=== PATIENT | female | born 1940 | race Two or more races ===

== ENCOUNTER 2018-03-29 22:49 | Inpatient (IN) | payer MEDICARE, MEDICAID ==
[~2018-03-29] VITALS: Ht 154.9 cm; Wt 59.1 kg
[~2018-03-29 22:49] MED LIST: ALBU8.5H8 IH; ALEN70TA13 PO; ASPI-1130 PO; CYCL-1 PO; ESCI20TA38 PO; ESOM40CA PO; HYDR-3964 PO; PROP20TA6 PO
[2018-03-29] MEDS ORDERED: normal saline 1000ML IV soln IVB ONE (23:15)
[2018-03-29 23:18] LABS: ALANINE AMINOTRANSFERASE 14 U/L (12-78); ALBUMIN 3.6 G/DL (3.4-5.0); ALKALINE PHOSPHATASE 100 IU/L (46-116); ANION GAP 10 (8-16); ASPARTATE AMINO TRANSFERASE 11 U/L (10-37); BILIRUBIN,TOTAL 0.3 MG/DL (0.1-1.0); BLOOD UREA NITROGEN 12 MG/DL (7-18); BUN/CREATININE RATIO 14.8 (6.6-38.0); CALCIUM 10.2 MG/DL (8.5-10.1); CHLORIDE 106 MMOL/L (99-107); CREATININE 0.81 MG/DL (0.40-0.90); GLUCOSE 115 MG/DL (70-104); POTASSIUM 3.7 MMOL/L (3.5-5.1); PROTHROMBIN TIME 9.8 SECONDS (9.0-12.0); SODIUM 142 MMOL/L (135-145); TOTAL CARBON DIOXIDE 26.1 MMOL/L (24-32); TOTAL PROTEIN 7.3 G/DL (6.4-8.2); eGFR 68 ML/MIN
[2018-03-29 23:28] LABS: BASOPHILS # (AUTO) 0.1 X10'3 (0-0.2); BASOPHILS % (AUTO) 0.5 % (0-1); EOSINOPHILS # (AUTO) 0.1 X10'3 (0-0.9); EOSINOPHILS % (AUTO) 1.1 % (0-6); HEMATOCRIT 43.9 % (35.0-45.0); HEMOGLOBIN 14.1 g/dl (12.0-16.0); LYMPHOCYTES # (AUTO) 2.8 X10'3 (1.1-4.8); MEAN CORPUSCULAR HEMOGLOBIN 27.6 PG (27.0-31.0); MEAN CORPUSCULAR HGB CONC 32.3 % (33.0-36.5); MEAN CORPUSCULAR VOLUME 85.6 FL (78-98); MEAN PLATELET VOLUME 8.3 FL (7.4-10.4); MONOCYTES # (AUTO) 0.8 X10'3 (0-0.9); MONOCYTES % (AUTO) 6.9 % (2-12); NEUTROPHILS % (AUTO) 67.5 % (42-75); PLATELET COUNT 322 X10'3 (140-440); RED BLOOD COUNT 5.13 X10'6 (4.20-5.60); RED CELL DISTRIBUTION WIDTH 18.1 % (11.5-14.5); WHITE BLOOD COUNT 11.9 X10'3 (4.5-11.0)
[2018-03-29] MEDS: morphine 4 MG/ML inj SYRINge IV PRN (23:33)
[2018-03-30] MEDS: morphine 4 MG/ML inj SYRINge IV PRN (02:14)
[2018-03-30] MEDS ORDERED: acetaminophen 325mg tablet PO PRN (02:30)
[2018-03-30] MEDS ORDERED: morphine 4 MG/ML inj SYRINge IV PRN ×2 (02:30)
[2018-03-30] MEDS ORDERED: mag hydrox/Alum hydrox/simeth 30ml oral suspension PO PRN (02:30)
[2018-03-30] MEDS ORDERED: HYDROcodone/acetaminophen 5mg/325mg tablet PO PRN (02:30)
[2018-03-30] MEDS ORDERED: HYDROcodone/acetaminophen 10/325mg tab PO PRN (02:30)
[2018-03-30] MEDS ORDERED: magnesium hydroxide 30ml (MOM) UD suspension PO PRN (02:30)
[2018-03-30] MEDS: dextrose 5%-1/2 normal saline 1,000 ML IV SCH ×3 (03:11→22:20)
[2018-03-30 06:06] LABS: COLOR,URINE YELLOW (Yellow); GLUCOSE, URINE NEGATIVE (Neg); KETONES,URINE NEGATIVE (Neg); LEUKOCYTE ESTERASE ,URINE NEGATIVE (Neg); NITRITES, URINE POSITIVE (Neg); OCCULT BLOOD,URINE MODERATE (Neg); PROTEIN,URINE NEGATIVE (Neg); UROBILINOGEN,URINE 0.2 E.U/dL (0.2-1.0)
[2018-03-30 06:17] LABS: UA COLLECTION TYPE CLN CATCH MIDSTREAM
[2018-03-30 06:19] LABS: CLARITY,URINE CLOUDY (Clear)
[2018-03-30 06:25] LABS: BACTERIA,URINE 4+ /HPF (Neg); MUCUS STRANDS NONE SEEN /LPF (Neg); SQUAMOUS EPITHELIAL CELL,UR MODERATE /LPF (FEW)
--- NOTE | 2018-03-30 06:56 | NUR ---
I have received patient report from Rubi in ED
[2018-03-30] MEDS: ondansetron/PF 4mg/2ml inj IV PRN ×2 (07:13→17:27)
[2018-03-30] MEDS: enoxaparin 40mg/0.4ml syringe SUBCUT SCH (07:13)
--- NOTE | 2018-03-30 07:22 | NUR ---
Patient given zofran for nausea but no vomiting, patient depends removed, urine smelled very foul.
[2018-03-30 07:30] VITALS: BP 131/55
[2018-03-30 10:00] VITALS: BP 109/65
[2018-03-30] MEDS ORDERED: CefTRIAXone/D5W-Rocephin 1gm 50 ML IV ONE (11:40)
--- NOTE | 2018-03-30 18:35 | NUR ---
Patient in room [facility]TH[facility] 4012. I have received report from JOSE JARA and had the opportunity to ask questions and assume patient care. Addendum: 03/30/18 at 1904 by Carlie Donahue RN Amended: Links added.
--- NOTE | 2018-03-30 18:54 | NUR ---
I gave patient report to Malou SÁNCHEZ
[2018-03-30 19:00] VITALS: BP 115/50
[2018-03-30] MEDS ORDERED: diatrozoate meglu/diatrozoate sod (37% iodine) 120ML oral solution PO SCH (21:00)
[2018-03-30 22:00] VITALS: BP 105/87
[2018-03-30] MEDS: diatr meglu/diatrizoate 30ml oral sol.-(3 dose) bottle PO SCH (22:21)
--- NOTE | 2018-03-30 22:24 | NUR ---
complete bed bath and linen change, declined oral care, states will do in am. declined shampoo cap. Addendum: 03/30/18 at 2226 by Carlie Donahue RN Amended: Links added.
--- NOTE | 2018-03-31 06:38 | NUR ---
Problems reprioritized. Patient report given, questions answered & plan of care reviewed with JOSE MCNALLY. Addendum: 03/31/18 at 0638 by Carlie Donahue RN Amended: Links added.
[2018-03-31 06:49] VITALS: BP 122/45
[2018-03-31 06:58] LABS: BASOPHILS % (AUTO) 0.5 % (0-1); EOSINOPHILS # (AUTO) 0.1 X10'3 (0-0.9); HEMATOCRIT 34.8 % (35.0-45.0); HEMOGLOBIN 11.6 g/dl (12.0-16.0); LYMPHOCYTES # (AUTO) 2.2 X10'3 (1.1-4.8); LYMPHOCYTES % (AUTO) 45.1 % (21-51); MEAN CORPUSCULAR HEMOGLOBIN 28.3 PG (27.0-31.0); MEAN CORPUSCULAR HGB CONC 33.2 % (33.0-36.5); MEAN CORPUSCULAR VOLUME 85.2 FL (78-98); MEAN PLATELET VOLUME 8.5 FL (7.4-10.4); MONOCYTES # (AUTO) 0.6 X10'3 (0-0.9); MONOCYTES % (AUTO) 11.5 % (2-12); NEUTROPHILS % (AUTO) 39.9 % (42-75); PLATELET COUNT 255 X10'3 (140-440); RED BLOOD COUNT 4.09 X10'6 (4.20-5.60); RED CELL DISTRIBUTION WIDTH 17.6 % (11.5-14.5); WHITE BLOOD COUNT 4.9 X10'3 (4.5-11.0)
[2018-03-31 07:16] LABS: ALBUMIN 2.5 G/DL (3.4-5.0); ANION GAP 9 (8-16); BLOOD UREA NITROGEN 6 MG/DL (7-18); BUN/CREATININE RATIO 8.6 (6.6-38.0); CHLORIDE 111 MMOL/L (99-107); GLUCOSE 90 MG/DL (70-104); POTASSIUM 3.6 MMOL/L (3.5-5.1); SODIUM 145 MMOL/L (135-145); TOTAL CARBON DIOXIDE 25.2 MMOL/L (24-32); eGFR 81 ML/MIN
[2018-03-31] MEDS: diatr meglu/diatrizoate 30ml oral sol.-(3 dose) bottle PO SCH ×2 (07:21→09:29)
[2018-03-31] MEDS ORDERED: CefTRIAXone/D5W-Rocephin 1gm 50 ML IV SCH (08:00)
[2018-03-31] MEDS ORDERED: iohexol 300mg/ml 100ml inj. ONE (08:07)
[2018-03-31] MEDS: enoxaparin 40mg/0.4ml syringe SUBCUT SCH (08:34)
[2018-03-31] MEDS ORDERED: pantoprazole 40mg Tablet.DR PO SCH (09:50)
[2018-03-31] MEDS ORDERED: CIPR-230 PO (11:23)
[2018-03-31] MEDS ORDERED: METR500T PO (11:23)
--- NOTE | 2018-03-31 15:02 | NUR ---
Patient was discharged IV and tele was removed from patient. Patient left with daughter. Prescription was called into [facility] pharmacy on [address]
== END 2018-03-31 14:22 | disposition home or self-care (01) | DRG 389 ==
LOC: ER 22:49 → ED HOLD 03-30 02:27 → ORTHO 4S 03-30 07:08
PROVIDERS: ADMIT Internal Medicine; ATTEND Family Medicine
DX: K56.609 Unspecified intestinal obstruction, unspecified as to partial versus complete obstruction (principal); N39.0 Urinary tract infection, site not specified; E78.00 Pure hypercholesterolemia, unspecified; I10 Essential (primary) hypertension; J44.9 Chronic obstructive pulmonary disease, unspecified; K21.9 Gastro-esophageal reflux disease without esophagitis; F32.9 Major depressive disorder, single episode, unspecified; F41.9 Anxiety disorder, unspecified; M19.90 Unspecified osteoarthritis, unspecified site; Z90.49 Acquired absence of other specified parts of digestive tract; Z88.0 Allergy status to penicillin; Z79.899 Other long term (current) drug therapy; Z79.82 Long term (current) use of aspirin
CPT/HCPCS: 36415; 74176; 74177; 80048; 80053; 81001; 83605; 85025; 85610; 87070; 87077; 87088; 87186; 96361; 96374; 96376; 99285; G0378; J0696; J1650; J2270; J2405; Q9963; Q9967

== ENCOUNTER 2021-02-04 10:58 | Emergency (ER) | payer MEDICARE, MEDICAID ==
[~2021-02-04] VITALS: Ht 154.9 cm; Wt 59.1 kg
[~2021-02-04 10:58] MED LIST changes: +ALBU8.5H17 IH; -ALBU8.5H8 IH; -ALEN70TA13 PO; -ASPI-1130 PO; +ASPI-1397 PO; -ESCI20TA38 PO; +ESCI20TA39 PO
--- NOTE | 2021-02-04 12:48 | NUR ---
TC FROM JOSEPH JUNG, DAUGHTER AND FROM DAUGHTER, JASWANT DOBBS, DAUGHTER, FOR CONDITION REPORT. JOSEPH PHONE NUMBER: [phone] JASWANT PHONE NUMBER: [phone]
[2021-02-04 13:54] LABS: BASOPHILS % (AUTO) 0.1 % (0-1); EOSINOPHILS % (AUTO) 0 % (0-6); HEMATOCRIT 37.1 % (35.0-45.0); HEMOGLOBIN 12.3 g/dl (12.0-16.0); LYMPHOCYTES # (AUTO) 0.4 X10'3 (1.1-4.8); LYMPHOCYTES % (AUTO) 7.5 % (21-51); MEAN CORPUSCULAR HEMOGLOBIN 28.5 PG (27.0-31.0); MEAN CORPUSCULAR HGB CONC 33.1 g/dL (33.0-36.5); MEAN PLATELET VOLUME 8.5 FL (7.4-10.4); MONOCYTES # (AUTO) 0.4 X10'3 (0-0.9); MONOCYTES % (AUTO) 7.5 % (2-12); NEUTROPHILS % (AUTO) 84.9 % (42-75); PLATELET COUNT 160 X10'3 (140-440); RED BLOOD COUNT 4.31 X10'6 (4.20-5.60); RED CELL DISTRIBUTION WIDTH 14.1 % (11.5-14.5); WHITE BLOOD COUNT 4.7 X10'3 (4.5-11.0)
[2021-02-04 14:07] LABS: ALANINE AMINOTRANSFERASE 26 U/L (12-78); ALBUMIN 2.5 G/DL (3.4-5.0); ALBUMIN/GLOBULIN RATIO 0.7 (1.1-1.5); ALKALINE PHOSPHATASE 46 IU/L (46-116); ANION GAP 7 (8-16); ASPARTATE AMINO TRANSFERASE 47 U/L (10-37); BILIRUBIN,TOTAL 0.5 MG/DL (0.1-1.0); BLOOD UREA NITROGEN 15 MG/DL (7-18); BUN/CREATININE RATIO 15.8 (6.6-38.0); CALCIUM 8.5 MG/DL (8.5-10.1); CHLORIDE 107 MMOL/L (99-107); CREATININE 0.95 MG/DL (0.40-0.90); GLUCOSE 105 MG/DL (70-104); POTASSIUM 3.4 MMOL/L (3.5-5.1); SODIUM 141 MMOL/L (135-145); TOTAL CARBON DIOXIDE 26.7 MMOL/L (24-32); TOTAL PROTEIN 6.3 G/DL (6.4-8.2); eGFR 56 ML/MIN
[2021-02-04] MEDS ORDERED: CASIRIVIMAB/IMDEVIMAB inject. 10 ML in normal saline 100ml IV soln 100 ML IV ONE (14:30)
[2021-02-04 18:06] VITALS: BP 103/47
[2021-02-07] MEDS ORDERED: ASPI-1264 PO (16:35)
[2021-02-07] MEDS ORDERED: HYDR453.3 TP (18:10)
[2021-02-07] MEDS ORDERED: VALS80TA32 PO (18:11)
[2021-02-07] MEDS ORDERED: ALBU18HF2 INH (18:11)
[2021-02-07] MEDS ORDERED: DICL100G30 TP (18:12)
== END 2021-02-04 17:35 | disposition home or self-care (01) ==
LOC: ER 11:00
DX: U07.1 COVID-19 (principal); R05.9 Cough, unspecified; R11.0 Nausea; E78.00 Pure hypercholesterolemia, unspecified; I10 Essential (primary) hypertension; M19.90 Unspecified osteoarthritis, unspecified site; F41.9 Anxiety disorder, unspecified; F32.9 Major depressive disorder, single episode, unspecified; Z90.89 Acquired absence of other organs; Z90.49 Acquired absence of other specified parts of digestive tract; Z98.890 Other specified postprocedural states; Z88.0 Allergy status to penicillin; Z79.82 Long term (current) use of aspirin; Z79.899 Other long term (current) drug therapy
CPT/HCPCS: 36415; 71045; 80053; 83880; 84484; 85025; 87635; 93005; 99285; C9803; M0243; Q0244